=== PATIENT | male | born 1960 | race African-American/Black ===

== ENCOUNTER → 2017-04-27 | Outpatient (REF) ==
[~2017-04-27] MED LIST: ADDERALL30 MG PO; AMBIEN 10MG10 MG PO; ASPIRIN E.C. 8181 MG PO; AVANDIA; CONCERTA36 MG PO; COZAAR 25MG25 MG/TAB PO; COZAAR100 MG PO; GLUCOPHAGE1000 MG PO; GLUCOTROL10 MG PO; HCTZ 25MG TAB25 MG PO; LOPRESSOR 550 MG/TAB PO; METFORMIN1000 MG PO; NAPROSYN500 MG PO; NEURONTIN300 MG/CAP PO; PLAVIX 75MG TAB75 MG PO; PRECOSE50 M1 PO; PRILOSEC 20MG20 MG PO; PROTONIX 40MG T40 MG PO; XALATAN EYE DROPS OD; ZOCOR 40MG40 MG PO
[2017-04-27 19:06] LABS: PSA-TOTAL 0.86 ng/mL (0-4)
[2017-04-27 19:21] LABS: THYROID STIMULATING HORMONE 2.5 uIU/mL (0.465-4.680)
== END ==
LOC: ZLAB.WCH 18:00
PROVIDERS: Internal Medicine
DX: Z01.89 Encounter for other specified special examinations (principal)
CPT/HCPCS: G0103

== ENCOUNTER 2020-11-19 23:43 | Emergency (ER) | payer MEDICARE, MEDICAID ==
[~2020-11-19] VITALS: Ht 167.6 cm; Wt 118.2 kg
[2020-11-19 23:54] VITALS: TEMP 97
[2020-11-20] MEDS ORDERED: LIDODERM 5% PATC1 EA TP (00:26)
[2020-11-20] MEDS ORDERED: FLEXERIL 1010 MG/TAB PO (00:26)
[2020-11-20 00:45] VITALS: BP 146/71; PULSE 63
== END 2020-11-20 00:45 | disposition home or self-care (01) ==
LOC: COL.ER 23:43
DX: M79.604 Pain in right leg (principal)

== ENCOUNTER 2021-07-03 14:49 | Emergency (ER) | payer MEDICARE, MEDICAID ==
[~2021-07-03] VITALS: Ht 167.6 cm; Wt 118.2 kg
[~2021-07-03 14:49] MED LIST changes: +FLEXERIL 1010 MG/TAB PO; +LIDODERM 5% PATC1 EA TP
[2021-07-03 15:03] VITALS: TEMP 98.3
[2021-07-03 15:12] LABS: COLLECTION METHOD CLEAN CATCH
[2021-07-03 15:19] LABS: PH 5 (5-8); SQUAMOUS EPITHELIAL 0-2 /hpf (0-10); URINE APPEARANCE Clear (CLEAR/HAZY); URINE BACTERIA None Seen /hpf (NONE SEEN); URINE BILIRUBIN Negative (NEGATIVE); URINE BLOOD Negative (NEGATIVE); URINE COLOR Yellow (YELLOW); URINE GLUCOSE 3+ (NEGATIVE); URINE KETONE Negative (NEGATIVE); URINE LEUKOCYTE ESTERASE Negative (NEGATIVE); URINE NITRATE Negative (NEGATIVE); URINE PROTEIN(semi-quant) Negative (NEGATIVE); URINE RBC 0-2 /hpf (0-2); URINE UROBILINOGEN >=4.0 (NEGATIVE)
[2021-07-03 16:13] LABS: BASO % 0.5 % (0.0-2.0); EOS # 0.1 K/mm3 (0.0-0.7); EOS % 0.7 % (0.0-4.0); GRAN # 2.7 K/mm3 (1.4-6.5); GRAN % 32.8 % (42.2-75.2); HEMATOCRIT 41.4 % (42.0-52.0); HEMOGLOBIN 14.8 g/dl (13.5-18.0); LYMPH # 4.7 K/mm3 (1.2-3.4); LYMPH % 57.8 % (20.0-51.0); MEAN CELL VOLUME 92 fl (80.0-100.0); MEAN CORPUSCULAR HEMOGLOBIN 33 pg (27-31); MEAN CORPUSCULAR HGB CONC 36 g/dl (33.0-37.0); MEAN PLATELET VOLUME 9.9 fl (7.4-10.4); MONO # 0.7 K/mm3 (0.1-0.6); MONO % 8.1 % (1.7-9.3); PLATELET COUNT 352 K/mm3 (130-400); RED BLOOD COUNT 4.48 M/mm3 (4.20-5.60); REDCELL DISTRIBUTION WIDTH-CV 12.5 % (11.5-14.5)
[2021-07-03 17:18] LABS: ALBUMIN 4.2 gm/dL (3.4-4.8); BILIRUBIN,TOTAL 0.6 mg/dL (0.2-1.2); CALCIUM 8.8 mg/dL (8.4-10.2); CREATININE, serum 0.94 mg/dL (0.72-1.25); POTASSIUM 4.2 mmol/L (3.5-4.5); TOTAL PROTEIN 7.3 gm/dL (6.2-8.1)
[2021-07-03 18:45] VITALS: BP 141/88; PULSE 65
== END 2021-07-03 18:40 | disposition home or self-care (01) ==
LOC: COL.ER 14:49
PROVIDERS: Family Medicine; Student in an Organized Health Care Education/Training Program
DX: R10.9 Unspecified abdominal pain (principal)
CPT/HCPCS: Q9967

== ENCOUNTER 2023-09-11 22:05 | Emergency (ER) | payer MEDICARE, MEDICAID ==
[~2023-09-11] VITALS: Ht 167.6 cm; Wt 113.2 kg
[2023-09-11 22:09] VITALS: TEMP 98.2
[2023-09-11 23:24] LABS: BASO % 0.5 % (0.0-2.0); EOS # 0.1 K/mm3 (0.0-0.7); EOS % 1.4 % (0.0-4.0); GRAN # 3.1 K/mm3 (1.4-6.5); GRAN % 38.5 % (42.2-75.2); HEMATOCRIT 42.6 % (42.0-52.0); HEMOGLOBIN 15.2 g/dl (13.5-18.0); LYMPH % 49.8 % (20.0-51.0); MEAN CELL VOLUME 91 fl (80.0-100.0); MEAN CORPUSCULAR HEMOGLOBIN 33 pg (27-31); MEAN CORPUSCULAR HGB CONC 36 g/dl (33.0-37.0); MEAN PLATELET VOLUME 9.2 fl (7.4-10.4); MONO # 0.8 K/mm3 (0.1-0.6); MONO % 9.7 % (1.7-9.3); PLATELET COUNT 311 K/mm3 (130-400); RED BLOOD COUNT 4.68 M/mm3 (4.20-5.60); REDCELL DISTRIBUTION WIDTH-CV 12.4 % (11.5-14.5)
[2023-09-11 23:31] LABS: INR 1.1 (0.8-3.0); PROTHROMBIN TIME 12.3 SECONDS (9.7-12.8)
[2023-09-11 23:33] LABS: PARTIAL THROMBOPLASTIN TIME 42.1 SECONDS (26.0-37.0)
[2023-09-11 23:37] LABS: D-DIMER < 200.00 ng/mLDDu (200-230)
[2023-09-11 23:41] LABS: ALANINE AMINOTRANSFERASE 25 U/L (0-55); ALBUMIN 4.2 g/dL (3.4-4.8); ALKALINE PHOSPHATASE 52 U/L (40-150); ANION GAP 12 mmol/L (7-16); AST,SGOT 21 U/L (5-34); BLOOD UREA NITROGEN 14 mg/dL (8-26); CHLORIDE 107 mEq/L (98-107); CREATININE, serum 0.89 mg/dL (0.72-1.25); GLUCOSE 61 mg/dL (70-99); LIPASE 20 U/L (8-78); POTASSIUM 3.9 mEq/L (3.5-4.5); SODIUM 138 mEq/L (136-145); TOTAL PROTEIN 7.4 g/dl (6.2-8.1)
[2023-09-12 00:01] LABS: TROPONIN-I < 0.010 ng/mL (0.00-0.033); TSH w REFLEX 1.866 uIU/mL (0.350-4.940)
[2023-09-12 03:00] VITALS: BP 133/91; PULSE 78
== END 2023-09-12 03:00 | disposition home or self-care (01) ==
LOC: COL.ER 22:05
PROVIDERS: Emergency Medicine
DX: R00.2 Palpitations (principal); T43.615A Adverse effect of caffeine, initial encounter